=== PATIENT | male | born 1980 | race Caucasian/White ===

== ENCOUNTER 2022-10-27 13:01 | Emergency (ER) | payer MEDICAID ==
[~2022-10-27] VITALS: Ht 172.7 cm; Wt 102.0 kg
[~2022-10-27 13:01] MED LIST: BISA-155 PO; CIPR-202 PO; CLON-527 PO; MAGN296S89 PO; MESA1.2T PO; SERT50TA PO
[2022-10-27 13:29] LABS: BASOPHILS # (AUTO) 0.1 X10'3 (0-0.2); BASOPHILS % (AUTO) 0.7 % (0-1); EOSINOPHILS # (AUTO) 0.1 X10'3 (0-0.9); EOSINOPHILS % (AUTO) 1.2 % (0-6); HEMATOCRIT 43.8 % (42.0-52.0); LYMPHOCYTES # (AUTO) 1.6 X10'3 (1.1-4.8); LYMPHOCYTES % (AUTO) 20.4 % (21-51); MEAN CORPUSCULAR HEMOGLOBIN 30.5 PG (27.0-31.0); MEAN CORPUSCULAR HGB CONC 34.3 g/dL (33.0-36.5); MEAN CORPUSCULAR VOLUME 88.8 FL (78-98); MEAN PLATELET VOLUME 6.5 FL (7.4-10.4); MONOCYTES # (AUTO) 0.6 X10'3 (0-0.9); MONOCYTES % (AUTO) 8.5 % (2-12); NEUTROPHILS # (AUTO) 5.3 X10'3 (1.8-7.7); NEUTROPHILS % (AUTO) 69.2 % (42-75); PLATELET COUNT 299 X10'3 (140-440); RED BLOOD COUNT 4.94 X10'6 (4.70-6.10); RED CELL DISTRIBUTION WIDTH 13.6 % (11.5-14.5); WHITE BLOOD COUNT 7.7 X10'3 (4.5-11.0)
[2022-10-27 13:43] LABS: ALANINE AMINOTRANSFERASE 58 U/L (12-78); ALBUMIN 4.2 G/DL (3.4-5.0); ALBUMIN/GLOBULIN RATIO 1.1 (1.1-1.5); ALKALINE PHOSPHATASE 100 IU/L (46-116); ANION GAP 10 (8-16); ASPARTATE AMINO TRANSFERASE 39 U/L (10-37); BILIRUBIN,TOTAL 0.5 MG/DL (0.1-1.0); BLOOD UREA NITROGEN 17 MG/DL (7-18); BUN/CREATININE RATIO 19.8 (5.4-32.0); CALCIUM 9.3 MG/DL (8.5-10.1); CHLORIDE 104 MMOL/L (99-107); CREATININE 0.86 MG/DL (0.60-1.10); GLUCOSE 99 MG/DL (70-104); LIPASE 324 U/L (73-393); POTASSIUM 4.1 MMOL/L (3.5-5.1); SODIUM 137 MMOL/L (135-145); TOTAL CARBON DIOXIDE 23.4 MMOL/L (24-32); eGFR > 90 ML/MIN
[2022-10-27 13:56] LABS: CLARITY,URINE CLEAR (Clear); COLOR,URINE YELLOW (Yellow); GLUCOSE, URINE NEGATIVE (Neg); KETONES,URINE NEGATIVE (Neg); LEUKOCYTE ESTERASE ,URINE NEGATIVE (Neg); NITRITES, URINE NEGATIVE (Neg); OCCULT BLOOD,URINE TRACE-INTACT (Neg); PROTEIN,URINE NEGATIVE (Neg); UROBILINOGEN,URINE 0.2 E.U/dL (0.2-1.0)
[2022-10-27 13:57] LABS: UA COLLECTION TYPE CLN CATCH MIDSTREAM
[2022-10-27 14:11] LABS: SQUAMOUS EPITHELIAL CELL,UR FEW /LPF (FEW)
[2022-10-27 14:12] LABS: BACTERIA,URINE FEW /HPF (Neg); RBC,URINE 0-2 /HPF (0-2); WBC,URINE 0-4 /HPF (0-4)
[2022-10-27] MEDS ORDERED: ketorolac trometh. 30mg/ml inj. IV ONE (14:20)
[2022-10-27] MEDS ORDERED: normal saline 1000ML IV soln IVB ONE (14:20)
[2022-10-27] MEDS ORDERED: iohexol 300mg/ml 100ml inj. ONE (14:36)
[2022-10-27 15:11] VITALS: BP 130/85
[2022-10-27] MEDS ORDERED: ampicillin/sulbac 3gm/NS 100ml 100 ML IV ONE (16:30)
[2022-10-27] MEDS ORDERED: ondansetron/PF 4mg/2ml inj IV ONE (17:05)
[2022-10-27] MEDS ORDERED: morphine 4 MG/ML inj SYRINge IV ONE (17:05)
[2022-10-27] MEDS ORDERED: HYDR-3965 PO (17:57)
[2022-10-27] MEDS ORDERED: AMOX-117 PO (17:57)
[2022-10-27] MEDS ORDERED: OXYC-145 PO (18:06)
== END 2022-10-27 18:14 | disposition home or self-care (01) ==
LOC: ER 13:03
DX: K57.92 Diverticulitis of intestine, part unspecified, without perforation or abscess without bleeding (principal); R10.31 Right lower quadrant pain; R11.2 Nausea with vomiting, unspecified; F12.90 Cannabis use, unspecified, uncomplicated; Z98.890 Other specified postprocedural states; Z72.89 Other problems related to lifestyle; Z88.1 Allergy status to other antibiotic agents; Z88.6 Allergy status to analgesic agent; Z88.8 Allergy status to other drugs, medicaments and biological substances; Z79.2 Long term (current) use of antibiotics; Z79.899 Other long term (current) drug therapy
CPT/HCPCS: 36415; 74177; 80053; 81001; 83690; 85025; 96361; 96365; 96375; 99285; J0295; J1885; J2270; J2405; J3490; J7030; Q9967

== ENCOUNTER 2022-11-01 09:49 | Emergency (ER) | payer MEDICAID ==
[~2022-11-01] VITALS: Ht 172.7 cm; Wt 97.0 kg
[~2022-11-01 09:49] MED LIST changes: +AMOX-117 PO; +OXYC-145 PO
[2022-11-01] MEDS ORDERED: normal saline 1000ML IV soln IVB ONE (10:20)
[2022-11-01] MEDS ORDERED: morphine 4 MG/ML inj SYRINge IV ONE (10:20)
[2022-11-01 10:38] LABS: BASOPHILS # (AUTO) 0.1 X10'3 (0-0.2); BASOPHILS % (AUTO) 0.7 % (0-1); EOSINOPHILS # (AUTO) 0.2 X10'3 (0-0.9); EOSINOPHILS % (AUTO) 2.5 % (0-6); HEMATOCRIT 44.8 % (42.0-52.0); HEMOGLOBIN 15.2 g/dl (14.0-17.9); LYMPHOCYTES # (AUTO) 1.3 X10'3 (1.1-4.8); LYMPHOCYTES % (AUTO) 12.5 % (21-51); MEAN CORPUSCULAR HEMOGLOBIN 30.4 PG (27.0-31.0); MEAN CORPUSCULAR HGB CONC 33.9 g/dL (33.0-36.5); MEAN CORPUSCULAR VOLUME 89.8 FL (78-98); MEAN PLATELET VOLUME 6.4 FL (7.4-10.4); MONOCYTES # (AUTO) 0.6 X10'3 (0-0.9); MONOCYTES % (AUTO) 6.3 % (2-12); NEUTROPHILS # (AUTO) 7.8 X10'3 (1.8-7.7); PLATELET COUNT 289 X10'3 (140-440); RED BLOOD COUNT 4.99 X10'6 (4.70-6.10); RED CELL DISTRIBUTION WIDTH 13.7 % (11.5-14.5)
[2022-11-01] MEDS: ondansetron/PF 4mg/2ml inj IV ONE ×2 (10:49→10:52)
[2022-11-01 10:55] LABS: ALANINE AMINOTRANSFERASE 92 U/L (12-78); ALBUMIN 3.9 G/DL (3.4-5.0); ALBUMIN/GLOBULIN RATIO 1.1 (1.1-1.5); ALKALINE PHOSPHATASE 93 IU/L (46-116); ANION GAP 6 (8-16); ASPARTATE AMINO TRANSFERASE 56 U/L (10-37); BILIRUBIN,TOTAL 0.4 MG/DL (0.1-1.0); BLOOD UREA NITROGEN 18 MG/DL (7-18); BUN/CREATININE RATIO 18.9 (5.4-32.0); CALCIUM 8.9 MG/DL (8.5-10.1); CHLORIDE 103 MMOL/L (99-107); CREATININE 0.95 MG/DL (0.60-1.10); GLUCOSE 101 MG/DL (70-104); POTASSIUM 4.5 MMOL/L (3.5-5.1); SODIUM 136 MMOL/L (135-145); TOTAL CARBON DIOXIDE 27.5 MMOL/L (24-32); TOTAL PROTEIN 7.4 G/DL (6.4-8.2); eGFR 87 ML/MIN
[2022-11-01] MEDS ORDERED: ketorolac trometh. 30mg/ml inj. IV ONE (12:10)
[2022-11-01] MEDS ORDERED: OXYC-145 PO (12:17)
[2022-11-01] MEDS ORDERED: MAGN296S68 PO (12:17)
[2022-11-01] MEDS ORDERED: POLY119P2 PO (12:17)
[2022-11-01 12:30] VITALS: BP 129/72
== END 2022-11-01 12:36 | disposition home or self-care (01) ==
LOC: ER 09:49
DX: R55 Syncope and collapse (principal); K59.00 Constipation, unspecified; F12.90 Cannabis use, unspecified, uncomplicated; Z88.1 Allergy status to other antibiotic agents; Z88.5 Allergy status to narcotic agent; Z88.6 Allergy status to analgesic agent
CPT/HCPCS: 36415; 70450; 71045; 72170; 80053; 85025; 93005; 96361; 96374; 96375; 99285; J1885; J2270; J7030; J2405

== ENCOUNTER 2022-11-14 08:41 | Emergency (ER) | payer MEDICAID ==
[~2022-11-14] VITALS: Ht 172.7 cm; Wt 100.0 kg
[~2022-11-14 08:41] MED LIST changes: -AMOX-117 PO; +MAGN296S68 PO; +POLY119P2 PO
[2022-11-14 08:47] VITALS: BP 146/89
[2022-11-14] MEDS ORDERED: TRAM50TA2 PO (10:56)
[2022-11-14] MEDS ORDERED: ketorolac trometh inj. 60 MG/2 ML VIAL IM ONE (11:15)
== END 2022-11-14 11:49 | disposition home or self-care (01) ==
LOC: ER 08:42
DX: S83.92XA Sprain of unspecified site of left knee, initial encounter (principal); M25.462 Effusion, left knee; Z88.1 Allergy status to other antibiotic agents; Z88.6 Allergy status to analgesic agent; Z79.899 Other long term (current) drug therapy; Z79.1 Long term (current) use of non-steroidal anti-inflammatories (NSAID); Z79.2 Long term (current) use of antibiotics; X58.XXXA Exposure to other specified factors, initial encounter; Y93.89 Activity, other specified; Y92.89 Other specified places as the place of occurrence of the external cause; Y99.8 Other external cause status
CPT/HCPCS: 29530; 73564; 96372; 99284; J1885; A6449

== ENCOUNTER 2024-06-07 10:10 | Emergency (ER) | payer MEDICAID ==
[~2024-06-07] VITALS: Ht 172.7 cm; Wt 97.7 kg
[2024-06-07] MEDS: proCHLORperazine 10 MG/2 ml inj IV ONE (10:42)
[2024-06-07] MEDS: diphenhydrAMINE 50 mg/ml inj IV ONE (10:42)
[2024-06-07] MEDS: normal saline 1000ml 1,000 ML IV ONE (10:43)
[2024-06-07 10:59] LABS: BASOPHILS # (AUTO) 0.1 X10'3 (0-0.2); BASOPHILS % (AUTO) 1.1 % (0-1); EOSINOPHILS # (AUTO) 0.3 X10'3 (0-0.9); HEMATOCRIT 50.3 % (42.0-52.0); HEMOGLOBIN 17.1 g/dl (14.0-17.9); LYMPHOCYTES # (AUTO) 1.4 X10'3 (1.1-4.8); LYMPHOCYTES % (AUTO) 21.5 % (21-51); MEAN CORPUSCULAR HEMOGLOBIN 31.2 PG (27.0-31.0); MEAN CORPUSCULAR HGB CONC 33.9 g/dL (33.0-36.5); MEAN CORPUSCULAR VOLUME 92.1 FL (78-98); MONOCYTES # (AUTO) 0.4 X10'3 (0-0.9); MONOCYTES % (AUTO) 6.6 % (2-12); NEUTROPHILS # (AUTO) 4.4 X10'3 (1.8-7.7); NEUTROPHILS % (AUTO) 65.8 % (42-75); PLATELET COUNT 314 X10'3 (140-440); RED BLOOD COUNT 5.47 X10'6 (4.70-6.10); RED CELL DISTRIBUTION WIDTH 14.3 % (11.5-14.5); WHITE BLOOD COUNT 6.7 X10'3 (4.5-11.0)
[2024-06-07 11:25] LABS: ALANINE AMINOTRANSFERASE 35 U/L (12-78); ALBUMIN 3.8 G/DL (3.4-5.0); ALKALINE PHOSPHATASE 83 IU/L (46-116); ANION GAP 10 (8-16); ASPARTATE AMINO TRANSFERASE 24 U/L (10-37); BILIRUBIN,TOTAL 0.5 MG/DL (0.1-1.0); BLOOD UREA NITROGEN 13 MG/DL (7-18); BUN/CREATININE RATIO 14.9 (10.0-20.0); CHLORIDE 105 MMOL/L (99-107); CREATININE 0.87 MG/DL (0.60-1.10); GLUCOSE 157 MG/DL (70-104); SODIUM 141 MMOL/L (135-145); TOTAL CARBON DIOXIDE 25.7 MMOL/L (24-32); TOTAL PROTEIN 7.7 G/DL (6.4-8.2); eCRCL 106 ML/MIN; eGFR > 90 ML/MIN
[2024-06-07 13:41] VITALS: BP 121/81; PULSE 70; RESP 15; O2SAT 97
--- NOTE | 2024-06-07 14:36 | NUR ---
Patient eloped from the Emergency room with IV in. Attempted to call patient 2x.
--- NOTE | 2024-06-07 14:40 | NUR ---
Called [facility] to notify them that patient left with IV in.
[2024-06-07 14:51] VITALS: TEMP 97.6
== END 2024-06-07 14:54 | disposition home or self-care (01) ==
LOC: ER 10:10
DX: G43.909 Migraine, unspecified, not intractable, without status migrainosus (principal); R42 Dizziness and giddiness; R07.89 Other chest pain; F12.90 Cannabis use, unspecified, uncomplicated; Z88.1 Allergy status to other antibiotic agents; Z88.6 Allergy status to analgesic agent; Z88.5 Allergy status to narcotic agent; Z79.899 Other long term (current) drug therapy; Z79.2 Long term (current) use of antibiotics
CPT/HCPCS: 36415; 70450; 71045; 80053; 84484; 85025; 93005; 96361; 96374; 96375; 99285; J0780; J1200; J7030